=== PATIENT | male | born 1940 | race Caucasian/White ===

== ENCOUNTER 2018-04-01 00:58 | Observation (INO) | payer BC, MEDICARE ==
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
[2018-04-01 01:36] LABS: Hemoglobin 17.5 gm/dL (13.5-18.0); Mean Cell Volume 90.6 fl (78-100); Mean Corpuscular Hemoglobin 31.7 pg (27-31); Mean Platelet Volume 10.1 fl (8-11.3); Neutrophil # 14.7 K/mm3 (1.3-6.0); Platelet Count 146 K/mm3 (150-450); Red Blood Count 5.52 M/mm3 (4.7-6.0); Red Cell Distribution Width 12.8 % (11.5-14.0); White Blood Count 16.5 K/mm3 (4.0-10.5)
[2018-04-01 01:51] LABS: ALT 30 U/L (19-67); AST 28 U/L (0-48); Albumin * 4.1 gm/dl (3.4-5.0); Alkaline Phosphatase * 103 U/L (50-170); BNP * 332 pg/mL (5-650); BUN/Creatinine Ratio 22.9 (9.0-21.6); Bilirubin, Total 0.9 mg/dL (0.0-1.1); Blood Urea Nitrogen 19 mg/dL (6-23); Ca. Corrected For Albumin 9.3 mg/dL (8.4-10.2); Calcium * 9.7 mg/dL (7.9-10.9); Carbon Dioxide 30.2 mmol/L (24-32.6); Chloride 99 mmol/L (97-106); Glucose * 128 mg/dL (70-110); Potassium 4.2 mmol/L (3.4-4.6); Sodium 136 mmol/L (132-142); Total Protein 7.4 gm/dL (6.2-8.2)
[2018-04-01] MEDS ORDERED: LABETALOL HCL 5 MG/ML VIAL IV ONE ×2 (01:54→02:20)
[2018-04-01 01:56] LABS: Troponin I Less than 0.017 ng/mL (0.00-0.10)
[2018-04-01] MEDS ORDERED: LANOLIN/MIN OIL/PETROLAT,WHT 3.5 APPL TUBE OP PRN (10:00)
[2018-04-01] MEDS: CARVEDILOL 6.25 MG TABLET PO SCH ×2 (10:49→20:19)
[2018-04-01] MEDS: TIMOLOL MALEATE 50 DROP BTL OP SCH ×2 (10:50→21:01)
[2018-04-01] MEDS: AZITHROMYCIN 250 MG TABLET PO ONE (10:52)
[2018-04-01] MEDS: CLOPIDOGREL BISULFATE 75 MG TABLET PO SCH ×2 (10:53→20:21)
[2018-04-01] MEDS: LISINOPRIL 40 MG TABLET PO SCH (10:53)
[2018-04-01] MEDS: LEVOTHYROXINE SODIUM 88 MCG TABLET PO SCH (10:53)
[2018-04-01] MEDS: BRIMONIDINE TARTRATE 50 DROP BTL OP SCH ×2 (10:58→21:00)
[2018-04-01] MEDS ORDERED: LATANOPROST 25 DROP BTL OP SCH (17:00)
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
[2018-04-01] MEDS: CEFDINIR 300 MG CAPSULE PO SCH (20:43)
[2018-04-01] MEDS ORDERED: SIMVASTATIN 10 MG TABLET PO SCH (21:00)
[2018-04-02 05:31] LABS: Anion Gap 8.7 mmol/L (6.8-13.8); BUN/Creatinine Ratio 17.4 (9.0-21.6); Bilirubin, Total 1.3 mg/dL (0.0-1.1); Ca. Corrected For Albumin 9.4 mg/dL (8.4-10.2); Calcium * 8.9 mg/dL (7.9-10.9); Carbon Dioxide 29.5 mmol/L (24-32.6); Potassium 4.2 mmol/L (3.4-4.6); Total Protein 6.1 gm/dL (6.2-8.2)
[2018-04-02 05:32] LABS: Hematocrit 40.5 % (42.0-52.0); Hemoglobin 14.2 gm/dL (13.5-18.0); Mean Cell Volume 90.6 fl (78-100); Mean Corpuscular Hemoglobin 31.8 pg (27-31); Mean Corpuscular Hgb Conc 35.1 g/dl (32-36); Mean Platelet Volume 10.5 fl (8-11.3); Neutrophil # 15.7 K/mm3 (1.3-6.0); Neutrophil % 85.1 % (42-75.0); Platelet Count 132 K/mm3 (150-450); Red Blood Count 4.47 M/mm3 (4.7-6.0); Red Cell Distribution Width 13.2 % (11.5-14.0); White Blood Count 18.5 K/mm3 (4.0-10.5)
[2018-04-02] MEDS ORDERED: AZITHROMYCIN 250 MG TABLET PO SCH (09:00)
[2018-04-02] MEDS: LEVOTHYROXINE SODIUM 88 MCG TABLET PO SCH (09:31)
[2018-04-02] MEDS: CARVEDILOL 6.25 MG TABLET PO SCH (09:31)
[2018-04-02] MEDS: CEFDINIR 300 MG CAPSULE PO SCH (09:31)
[2018-04-02] MEDS: BRIMONIDINE TARTRATE 50 DROP BTL OP SCH (09:31)
[2018-04-02] MEDS: CLOPIDOGREL BISULFATE 75 MG TABLET PO SCH (09:31)
[2018-04-02] MEDS: LISINOPRIL 40 MG TABLET PO SCH (09:31)
[2018-04-02] MEDS: TIMOLOL MALEATE 50 DROP BTL OP SCH (09:32)
--- NOTE | 2018-04-02 10:00 | DS ---
(1) Pneumonia Problem: Acute Qualifiers: Pneumonia type: due to unspecified organism Laterality: bilateral Lung location: unspecified part of lung Qualified Code(s): J18.9 - Pneumonia, unspecified organism Description of Stay: Keith is a 78 yo male admitted with multifocal pneumonia found on chest CTA. CTA was performed due to sudden onset of shortness of breath, elevated d-dimer, and history of tongue cancer. CTA was negative for PE, but did identify multifocal pneumonia. He appeared overall medically stable but with the abrupt onset of symptom and history of cancer it was felt better to observe him. He was treated with Rocephin and azithromycin and then converted to oral cefdinir and azithromycin. WBC was initially elevated at 16k and repeat today remains elevated at 18k. Keith feels better, vitals are stable, and overall he feels better and ready to go home. I will continue cefdinir for 10 days total and azithromycin for 3 additional days. Due to his increased WBC I will plan to have him return early next week for hospital follow up and recheck a CBC. Procedures Performed: none Results and Findings: Pending Mircobiology Results 04/01/18 03:30 Blood Blood Culture - Preliminary NO GROWTH 24 HOURS 04/01/18 01:25 Blood Blood Culture - Preliminary NO GROWTH 24 HOURS Lab Pending Results 04/01/18 01:25: Sodium 136, Plasma Sodium 136, Potassium 4.2, Chloride 99, Carbon Dioxide 30.2, Anion Gap 11.0, BUN 19, Creatinine 0.83, Est GFR (Non-Af Amer) 95, BUN/Creatinine Ratio 22.9 H, Random Glucose 128 H, Calcium 9.7, Calcium Adj for Albumin 9.3, Total Bilirubin 0.9, AST 28, ALT 30, Alkaline Phosphatase 103, Troponin I Less than 0.017, B-Natriuretic Peptide 332, Total Protein 7.4, Albumin 4.1 04/01/18 01:25: WBC 16.5 H, RBC 5.52, Hgb 17.5, Hct 50.0, MCV 90.6, MCH 31.7 H, MCHC 35.0, RDW 12.8, Plt Count 146 L, MPV 10.1, Immature Gran % (Auto) 0.40, Immature Gran # (Auto) 0.06 H, Neutrophils % 89.0 H, Lymphocytes % 6.1 L, Monocytes % 4.2, Eosinophils % 0.1, Basophils % 0.2, Nucleated RBC % 0.0, Neutrophils # 14.7 H, Lymphocytes # 1.00 L, Monocytes # 0.7, Eosinophils # 0.0, Absolute Basophils 0.0 04/01/18 01:25: D-Dimer 2.05 H 04/01/18 01:25: Lactic Acid, Venous 1.9 04/02/18 05:10: WBC 18.5 H, RBC 4.47 L, Hgb 14.2, Hct 40.5 L, MCV 90.6, MCH 31.8 H, MCHC 35.1, RDW 13.2, Plt Count 132 L, MPV 10.5, Immature Gran % (Auto) 0.50 H, Immature Gran # (Auto) 0.09 H, Neutrophils % 85.1 H, Lymphocytes % 7.6 L, Monocytes % 5.1, Eosinophils % 1.4, Basophils % 0.3, Nucleated RBC % 0.0, Neutrophils # 15.7 H, Lymphocytes # 1.40 L, Monocytes # 1.0, Eosinophils # 0.3, Absolute Basophils 0.1 04/02/18 05:10: Sodium 135, Plasma Sodium 135, Potassium 4.2, Chloride 101, Carbon Dioxide 29.5, Anion Gap 8.7, BUN 16, Creatinine 0.92, Est GFR (Non-Af Amer) 84, BUN/Creatinine Ratio 17.4, Random Glucose 105, Calcium 8.9, Calcium Adj for Albumin 9.4, Total Bilirubin 1.3 H, AST 43, ALT 48, Alkaline Phosphatase 62, Total Protein 6.1 L, Albumin 3.0 L Discharge Location: Home Disposition: Home self-care Condition: Good Discharge Activity: Activity as tolerated Discharge Diet: General/regular food Referrals: Sharan Frances DO [Primary Care Provider] - One Week Problem Oriented Discharge Instructions to Patient/Family: Community-Acquired Pneumonia, Adult, [id number] Additional Patient Instructions (free text): -Please make TCM appointment unless mcfp discharge. Thank you! Sarah @ [phone]. Prescriptions (Any new or edited meds): Azithromycin [Zithromax] 250 mg PO DAILY #3 tablet Cefdinir [Omnicef] 300 mg PO BID #18 capsule Complete Home Medications List: Complete Home Medication List: Clopidogrel Bisulfate [Plavix] 0.5 tab PO BID 10/13/13 Lovastatin [Mevacor] 20 mg PO DAILY 10/13/13 brimonidine-timolol 0.2 %-0.5 % eye drops 1 drp OP Q12H 12/06/17 carvedilol 6.25 mg tablet 6.25 mg PO BID 12/06/17 latanoprost 0.005 % eye drops 1 drp OP QPM 12/06/17 levothyroxine 88 mcg capsule 88 mcg PO DAILY 12/06/17 lisinopril 40 mg tablet 40 mg PO DAILY 12/06/17 white petrolatum-mineral oil 56.8 %-42.5 % eye ointment 1 applic OP 4-6XD PRN 12/06/17 Azithromycin [Zithromax] 250 mg PO DAILY #3 tablet 04/02/18 Cefdinir [Omnicef] 300 mg PO BID #18 capsule 04/02/18 Timolol Maleate [Timoptic 0.5% Ophthalmic Solution] 1 drop OP Q12H btl 04/02/18
[2018-04-02 11:08] VITALS: BP 142/75
== END 2018-04-02 11:17 | disposition home or self-care (01) ==
LOC: ER 00:58 → INTOOBSV 03:36 → MS 03:36
PROVIDERS: ADMIT Family Medicine; ATTEND Family Medicine
DX: J15.9 Unspecified bacterial pneumonia
CPT/HCPCS: 36415; 71020; 71046; 71275; 80053; 83519; 83605; 83880; 84484; 85025; 85379; 87040; 87070; 87106; 90686; 93005; 94660; 94760; 96365; 96375; 99283; G0008; G0378